=== PATIENT | male | born 1985 | race Caucasian/White ===

== ENCOUNTER 2016-10-16 06:08 | Day surgery (SDC) | payer OTHER ==
[2016-10-15 15:58] VITALS: BMI 27.1
[2016-10-16 07:07] LABS: BASOPHIL 0.7 % (0-2.0); EOSINOPHIL 2.4 % (0-4.5); MCH 30.9 pg (25.7-33.7); MCHC 36.1 g/dl (32.0-35.9); MEAN CELL VOLUME 85.6 fl (80-96); MEAN PLT VOLUME 8.7 fl (7.5-11.1); NEUTROPHILS 58.4 % (42.8-82.8); PLATELET COUNT 165 K/MM3 (134-434); RDW 12.7 % (11.9-15.9); WHITE BLOOD COUNT 5.7 K/mm3 (4.0-10.0)
--- NOTE | 2016-10-16 07:16 | HP ---
Admitting History and Physical - Admission History of Present Illness: patient is a 31 y/o male with a past medical history of depression anxiety. patient presents for his first ECT. He reports struggling with depression for several years. patient reports taking prestiq with no relief of depressive symptoms. patient does reports suicidal ideation but does not have plan. He also reports social anxiety. patient denies any visual or auditory hallucination History Source: Patient Limitations to Obtaining History: No Limitations - Smoking History Smoking history: Current every day smoker Have you smoked in the past 12 months: Yes Aproximately how many cigarettes per day: 15 - Alcohol/Substance Use Hx Alcohol Use: Yes (RARELY) - Social History Usual Living Arrangement: Yes: Alone, Other (with family) ADL: Independent History of Recent Travel: No Home Medications - Allergies Allergies/Adverse Reactions: Allergies Allergy/AdvReac Type Severity Reaction Status Date / Time chocolate flavor Allergy Severe Swelling Verified 10/15/16 15:37 nut - unspecified Allergy Severe Swelling Verified 10/15/16 15:37 No Known Drug Allergies Allergy Verified 10/15/16 15:37 - Home Medications Home Medications: Ambulatory Orders Desvenlafaxine Succinate [Pristiq ER] 100 mg PO DAILY 10/15/16 Family Disease History - Family Disease History Family Disease History: Other: Sister (depression) Review of Systems - Review of Systems Constitutional: reports: No Symptoms Eyes: reports: No Symptoms HENT: reports: No Symptoms Neck: reports: No Symptoms Cardiovascular: reports: No Symptoms Respiratory: reports: No Symptoms Gastrointestinal: reports: No Symptoms Breasts: reports: No Symptoms Reported Musculoskeletal: reports: No Symptoms Integumentary: reports: No Symptoms Neurological: reports: No Symptoms Endocrine: reports: No Symptoms Hematology/Lymphatic: reports: No Symptoms Psychiatric: reports: Depression Physical Examination Vital Signs: Vital Signs Temperature 98.7 F 10/16/16 06:36 Pulse Rate 76 10/16/16 06:36 Respiratory Rate 18 10/16/16 06:36 Blood Pressure 128/72 10/16/16 06:36 O2 Sat by Pulse Oximetry (%) 99 10/16/16 06:36 Constitutional: Yes: Well Nourished, Anxious Eyes: Yes: WNL, Conjunctiva Clear, EOM Intact HENT: Yes: WNL, Atraumatic, Normocephalic Neck: Yes: WNL, Supple, Trachea Midline Cardiovascular: Yes: WNL, Regular Rate and Rhythm, S1, S2 Respiratory: Yes: WNL, Regular, CTA Bilaterally Gastrointestinal: Yes: WNL, Normal Bowel Sounds, Soft ...Rectal Exam: Yes: Deferred Renal/: Yes: WNL Musculoskeletal: Yes: WNL Extremities: Yes: WNL Edema: No Peripheral Pulses WNL: Yes Peripheral Pulses: Left Radial: 4+, Right Radial: 4+, Left Doralis Pedis: 3+, Right Dorsalis Pedis: 3+, Left Femoral: 3+, Right Femoral: 3+ Integumentary: Yes: WNL Neurological: Yes: WNL, Alert, Oriented ...Motor Strength: WNL Psychiatric: Yes: WNL, Alert, Oriented Labs: CBC WBC 5.7 K/mm3 (4.0-10.0) 10/16/16 06:00 RBC 5.42 M/mm3 (4.00-5.60) 10/16/16 06:00 Hgb 16.7 GM/dL (11.7-16.9) 10/16/16 06:00 Hct 46.4 % (35.4-49) 10/16/16 06:00 MCV 85.6 fl (80-96) 10/16/16 06:00 MCHC 36.1 g/dl (32.0-35.9) H 10/16/16 06:00 RDW 12.7 % (11.9-15.9) 10/16/16 06:00 Plt Count 165 K/MM3 (134-434) 10/16/16 06:00 MPV 8.7 fl (7.5-11.1) 10/16/16 06:00 Neutrophils % 58.4 % (42.8-82.8) 10/16/16 06:00 Lymphocytes % 28.1 % (8-40) 10/16/16 06:00 Monocytes % 10.4 % (3.8-10.2) H 10/16/16 06:00 Eosinophils % 2.4 % (0-4.5) 10/16/16 06:00 Basophils % 0.7 % (0-2.0) 10/16/16 06:00 Imaging - Results EKG: Image Reviewed, Other (nsr no ischemic changes) Assessment/Plan pt is 31 y/o male that presents for ECT. labs and EKG reviewed. pt is low risk for ECT informed consent, risks and benefits to be obtained by Dr Urbina
[2016-10-16 07:20] LABS: ALBUMIN 4.3 g/dl (3.4-5.0); ALK PHOS 97 U/L (45-117); ANION GAP 8 (8-16); BILIRUBIN,TOTAL 0.6 mg/dL (0.2-1.0); CALCIUM 8.4 mg/dL (8.5-10.1); CO2 28 mmol/L (21-32); CREATININE 0.7 mg/dL (0.7-1.3); GLUCOSE,RANDOM 94 mg/dL (74-106); SGOT/AST 49 U/L (15-37); SGPT/ALT 69 U/L (12-78); TOT PROT 7.7 g/dl (6.4-8.2)
[2016-10-16] MEDS ORDERED: LACTATED RINGERS SOLUTION 1,000 ML IV SCH (08:00)
[2016-10-16 09:24] VITALS: TEMP 98.2
[2016-10-16 09:27] VITALS: BP 130/72; PULSE 92
[2016-10-16] MEDS ORDERED: ONDANSETRON 4 MG/2 ML VIAL IVPUSH PRN (09:54)
--- NOTE | 2016-10-16 10:16 | EKG ---
Test Reason : Blood Pressure : / mmHG Vent. Rate : 080 BPM Atrial Rate : 080 BPM P-R Int : 144 ms QRS Dur : 088 ms QT Int : 376 ms P-R-T Axes : 059 042 060 degrees QTc Int : 433 ms NORMAL SINUS RHYTHM NORMAL ECG NO PREVIOUS ECGS AVAILABLE Confirmed by FERMIN JIMENEZ MD ([id number] on 10/16/2016 10:16:29 AM Referred By: Ranulfo Urbina Confirmed By:FERMIN JIMENEZ MD
== END 2016-10-16 09:30 | disposition home or self-care (01) ==
LOC: FECT 06:08
PROVIDERS: ATTEND Psychiatry & Neurology Psychiatry
PROC: GZB4ZZZ Other Electroconvulsive Therapy (ICD-10-PCS; principal; 2016-10-16 08:00)
DX: F25.1 Schizoaffective disorder, depressive type (principal)
CPT/HCPCS: 36415; 80053; 85025; 90870; 93005; 94760

== ENCOUNTER 2016-10-18 05:43 | Day surgery (SDC) | payer OTHER ==
[2016-10-16 11:43] VITALS: BMI 27.1
[2016-10-18 09:36] VITALS: TEMP 98.3
[2016-10-18 09:37] VITALS: BP 120/62; PULSE 72
== END 2016-10-18 09:20 | disposition home or self-care (01) ==
LOC: FECT 05:43
PROVIDERS: ATTEND Psychiatry & Neurology Psychiatry
PROC: GZB4ZZZ Other Electroconvulsive Therapy (ICD-10-PCS; principal; 2016-10-18 08:15)
DX: F25.1 Schizoaffective disorder, depressive type (principal)
CPT/HCPCS: 90870; 94760

== ENCOUNTER 2016-10-21 05:39 | Day surgery (SDC) | payer OTHER ==
[2016-10-16 11:50] VITALS: BMI 27.1
[2016-10-21 06:47] VITALS: TEMP 98
[2016-10-21 08:45] VITALS: BP 126/66; PULSE 72
== END 2016-10-21 08:50 | disposition home or self-care (01) ==
LOC: FECT 05:39
PROVIDERS: ATTEND Psychiatry & Neurology Psychiatry
PROC: GZB4ZZZ Other Electroconvulsive Therapy (ICD-10-PCS; principal; 2016-10-21 07:45)
DX: F25.1 Schizoaffective disorder, depressive type (principal)
CPT/HCPCS: 90870; 94760

== ENCOUNTER 2016-10-23 05:38 | Day surgery (SDC) | payer OTHER ==
[2016-10-21 12:21] VITALS: BMI 27.1
[2016-10-23] MEDS ORDERED: ACETAMINOPHEN 325 MG TABLET (FP) PO PRN (07:21)
[2016-10-23] MEDS ORDERED: LACTATED RINGERS SOLUTION 1,000 ML IV SCH (07:30)
[2016-10-23 08:10] VITALS: TEMP 98.2
[2016-10-23 08:46] VITALS: BP 118/72; PULSE 66
== END 2016-10-23 08:30 | disposition home or self-care (01) ==
LOC: FECT 05:38
PROVIDERS: ATTEND Psychiatry & Neurology Psychiatry
PROC: GZB4ZZZ Other Electroconvulsive Therapy (ICD-10-PCS; principal; 2016-10-23 07:15)
DX: F25.1 Schizoaffective disorder, depressive type (principal)
CPT/HCPCS: 90870; 94760

== ENCOUNTER 2016-10-25 05:37 | Day surgery (SDC) | payer OTHER ==
[2016-10-23 10:48] VITALS: BMI 27.1
[2016-10-25] MEDS ORDERED: LACTATED RINGERS SOLUTION 1,000 ML IV SCH (08:45)
[2016-10-25] MEDS ORDERED: ONDANSETRON 4 MG/2 ML VIAL IVPUSH PRN (09:06)
[2016-10-25 09:43] VITALS: TEMP 98.1
[2016-10-25 10:31] VITALS: BP 126/66; PULSE 74
== END 2016-10-25 10:15 | disposition home or self-care (01) ==
LOC: FECT 05:37
PROVIDERS: ATTEND Psychiatry & Neurology Psychiatry
PROC: GZB4ZZZ Other Electroconvulsive Therapy (ICD-10-PCS; principal; 2016-10-25 07:15)
DX: F25.1 Schizoaffective disorder, depressive type (principal)
CPT/HCPCS: 90870; 94760

== ENCOUNTER 2016-10-28 05:45 | Day surgery (SDC) | payer OTHER ==
[2016-10-23 10:54] VITALS: BMI 27.1
[2016-10-28] MEDS ORDERED: LACTATED RINGERS SOLUTION 1,000 ML IV SCH (07:30)
[2016-10-28 09:06] VITALS: TEMP 97.9
[2016-10-28 09:08] VITALS: BP 110/60; PULSE 62
== END 2016-10-28 09:09 | disposition home or self-care (01) ==
LOC: FECT 05:45
PROVIDERS: ATTEND Psychiatry & Neurology Psychiatry
PROC: GZB4ZZZ Other Electroconvulsive Therapy (ICD-10-PCS; principal; 2016-10-28 07:45)
DX: F25.1 Schizoaffective disorder, depressive type (principal)
CPT/HCPCS: 90870; 94760